=== PATIENT | male | born 1960 | race Caucasian/White ===

== ENCOUNTER 2019-03-19 14:41 | Emergency (ER) | payer OTHER ==
[~2019-03-19] VITALS: Ht 180.3 cm; Wt 127.0 kg
[2019-03-19] MEDS ORDERED: TOPROL XL50 M1 (15:06)
[2019-03-19] MEDS ORDERED: TAMBOCOR150 MG (15:07)
[2019-03-19] MEDS ORDERED: XARELTO20 MG (15:07)
[2019-03-19] MEDS ORDERED: CLONAZEPAM1 M1 (15:07)
[2019-03-19] MEDS ORDERED: ZOLOFT100 MG (15:08)
== END 2019-03-19 22:07 | disposition home or self-care (01) ==
LOC: ER 14:41
DX: S91.322A Laceration with foreign body, left foot, initial encounter (principal); S91.122A Laceration with foreign body of left great toe without damage to nail, initial encounter; S92.412A Displaced fracture of proximal phalanx of left great toe, initial encounter for closed fracture; W22.8XXA Striking against or struck by other objects, initial encounter; Y93.89 Activity, other specified; Y92.89 Other specified places as the place of occurrence of the external cause; Y99.8 Other external cause status

== ENCOUNTER 2019-03-26 16:21 | Emergency (ER) | payer OTHER ==
[~2019-03-26] VITALS: Ht 180.3 cm; Wt 127.0 kg
[~2019-03-26 16:21] MED LIST: CLONAZEPAM1 M1; TAMBOCOR150 MG; TOPROL XL50 M1; XARELTO20 MG; ZOLOFT100 MG
== END 2019-03-26 18:36 | disposition home or self-care (01) ==
LOC: ER 16:21
DX: M25.475 Effusion, left foot (principal); L08.89 Other specified local infections of the skin and subcutaneous tissue; S92.422S Displaced fracture of distal phalanx of left great toe, sequela; W22.8XXS Striking against or struck by other objects, sequela

== ENCOUNTER 2019-04-05 09:32 | Outpatient (CLI) | payer OTHER | END 2019-04-05 09:35 | disposition home or self-care (01) | LOC: RAD 09:32 | DX: S92.425B Nondisplaced fracture of distal phalanx of left great toe, initial encounter for open fracture (principal) ==

== ENCOUNTER → 2019-04-25 | Outpatient (CLI) | payer OTHER | END | disposition home or self-care (01) | LOC: RAD 15:13 | DX: M25.562 Pain in left knee (principal); M25.552 Pain in left hip ==

== ENCOUNTER 2019-05-30 09:58 | Emergency (ER) | payer OTHER ==
[~2019-05-30] VITALS: Ht 180.3 cm; Wt 129.3 kg
[2019-05-30] MEDS ORDERED: PERCOCET 5-3251 EACH PO (14:21)
== END 2019-05-30 14:38 | disposition home or self-care (01) ==
LOC: ER 09:58
DX: S80.12XA Contusion of left lower leg, initial encounter (principal); R60.0 Localized edema; W01.198A Fall on same level from slipping, tripping and stumbling with subsequent striking against other object, initial encounter; Y93.89 Activity, other specified; Y92.89 Other specified places as the place of occurrence of the external cause; Y99.8 Other external cause status

== ENCOUNTER 2019-06-07 13:55 | Outpatient (CLI) | payer OTHER ==
[~2019-06-07 13:55] MED LIST changes: +PERCOCET 5-3251 EACH PO
== END 2019-06-07 14:25 | disposition home or self-care (01) ==
LOC: RAD 13:55
DX: S22.41XA Multiple fractures of ribs, right side, initial encounter for closed fracture (principal)

== ENCOUNTER 2019-09-01 10:19 | Outpatient (CLI) | payer OTHER | END 2019-09-01 10:22 | disposition home or self-care (01) | LOC: RAD 10:19 | DX: R05 Cough (principal) ==

== ENCOUNTER → 2019-09-07 | Outpatient (CLI) | payer OTHER | END | disposition home or self-care (01) | LOC: NUCLEAR 13:29 | DX: I82.402 Acute embolism and thrombosis of unspecified deep veins of left lower extremity (principal); I73.9 Peripheral vascular disease, unspecified ==

== ENCOUNTER → 2020-03-02 | Outpatient (CLI) | payer OTHER | END | disposition home or self-care (01) | LOC: RAD 13:41 | PROVIDERS: ATTEND Internal Medicine Pulmonary Disease | DX: J45.51 Severe persistent asthma with (acute) exacerbation (principal); R06.02 Shortness of breath; E66.01 Morbid (severe) obesity due to excess calories; J45.50 Severe persistent asthma, uncomplicated; G47.33 Obstructive sleep apnea (adult) (pediatric) ==

== ENCOUNTER 2022-08-13 08:12 | Outpatient (CLI) | payer OTHER | END 2022-08-13 08:20 | disposition home or self-care (01) | LOC: TOM 08:12 | PROVIDERS: ATTEND Internal Medicine | DX: J44.1 Chronic obstructive pulmonary disease with (acute) exacerbation (principal); C85.90 Non-Hodgkin lymphoma, unspecified, unspecified site; F32.9 Major depressive disorder, single episode, unspecified; E66.01 Morbid (severe) obesity due to excess calories; I10 Essential (primary) hypertension; M54.59 Other low back pain; E03.9 Hypothyroidism, unspecified; E78.9 Disorder of lipoprotein metabolism, unspecified; E55.9 Vitamin D deficiency, unspecified; E66.8 Other obesity; G47.33 Obstructive sleep apnea (adult) (pediatric); G47.30 Sleep apnea, unspecified ==